=== PATIENT | male | born 1990 | race Two or more races ===

== ENCOUNTER 2025-03-29 10:21 | Emergency (ER) | payer OTHER ==
[~2025-03-29] VITALS: Ht 162.6 cm; Wt 66.1 kg
--- NOTE | 2025-03-29 10:36 | ECG ---
[facility] Test Date: 2025-03-29 Test Time: 10:31:51 Pat Name: YOLIS CANNON Department: [facility] ED Patient ID: [id number] Room: Gender: M Chief Guard: : 1990 Requested By: ENEDINA LAURENT Order Number: [id number] Reading MD: Goldy Amado Measurements Intervals [place] Rate: 94 P: -22 MS: 236 QRS: -27 QRSD: 149 T: 142 QT: 454 QTc: 568 Interpretive Statements Sinus rhythm Prolonged MS interval IVCD, consider atypical RBBB Inferior infarct, old Electronically Signed On 03-29-2025 11:02:32 PST by Goldy Amado Please click the below link to view image of tracing.
--- NOTE | 2025-03-29 11:10 | ED.PDOC ---
History of Present Illness HPI Comments 35 year old male presents to the ED with a chief complaint of cough onset 1 week. Patient states he has been experiencing cough as well as chest tightness for the past week. 1 week ago, when he began experiencing cough he experienced syncopal episode, woke up on the ground. Since then, he has been experiencing cough with chest discomfort, yesterday noticed burning sensation on chest. Denies fever, chills, headache, dizziness, hemoptysis, nausea, vomiting, diarrhea, numbness/tingling, blurred vision. No other symptoms or modifying factors present at this time. Chief Complaint: Shortness of Breath Time Seen by MD: 11:00 Reviewed Notes: Medications, Allergies Allergies: Coded Allergies: NO KNOWN ALLERGIES (Unverified , 03/29/25) Information Source: Patient, Relative (Mother) Mode of Arrival: Ambulatory Severity: Moderate Timing: Weeks Duration: Since onset Prehospital treatment: None Past Medical History PAST MEDICAL HISTORY: Denies Family History Family History: Reviewed,noncontributory to illness, No family hx of Cancer, No family hx of DM, No family hx of Heart felicita, No family hx of HTN, No family hx ofKidney felicita, No family hx of Liver felicita, No family hx of Lung felicita, No family hx of Stroke Social History Smoker: Non-Smoker Alcohol: Denies ETOH Use Drugs: Denies Drug Use Lives In: Home Constitutional: denies: chills, diaphoresis, fatigue, fever, malaise, sweats, weakness, others EENTM: denies: blurred vision, double vision, ear bleeding, ear discharge, ear drainage, ear pain, ear ringing, eye pain, eye redness, hearing loss, mouth pain, mouth swelling, nasal discharge, nose bleeding, nose congestion, nose pain, photophobia, tearing, throat pain, throat swelling, voice changes, others Respiratory: reports: cough; denies: hemoptysis, orthopnea, SOB at rest, shortness of breath, SOB with excertion, stridor, wheezing, others Cardiovascular: reports: chest pain; denies: dizzy spells, diaphoresis, Dyspnea on exertion, edema, irregular heart beat, left arm pain, lightheadedness, palpitations, PND, syncope, others Gastrointestinal: denies: abdomen distended, abdominal pain, blood streaked bowels, constipated, diarrhea, dysphagia, difficulty swallowing, hematemesis, melena, nausea, poor appetite, poor fluid intake, rectal bleeding, rectal pain, vomiting, others Genitourinary: denies: burning, dysuria, flank pain, frequency, hematuria, incontinence, penile discharge, penile sore, pain, testicle pain, testicle swelling, urgency, others Neurological: reports: others (syncope); denies: dizziness, fainting, headache, left sided numbness, left sided weakness, numbness, paresthesia, pre-existing deficit, right sided numbness, right sided weakness, seizure, speech problems, tingling, tremors, weakness Musculoskeletal: denies: back pain, gout, joint pain, joint swelling, muscle pain, muscle stiffness, neck pain, others Integumetry: denies: bruises, change in color, change in hair/nails, dryness, laceration, lesions, lumps, rash, wounds, others Allergic/Immunocompromised: denies: Difficulty Healing, Frequent Infections, Hives, Itching, others Hematologic/Lymphatic: denies: anemia, blood clots, easy bleeding, easy bruising, swollen glands, others Endocrine: denies: excessive hunger, excessive sweating, excessive thirst, excessive urination, flushing, intolerance to cold, intolerance to heat, unexplained weight gain, unexplained weight loss, others Psychiatric: denies: anxiety, bipolar disorder, depression, hopeless, panic disorder, schizophrenia, sleepless, suicidal, others All Other Systems: Reviewed and Negative Physical Exam General Appearance: No Apparent Distress, Normal HEENT: Normal ENT Inspection, Pharynx Normal, TMs Normal Neck: Full Range of Motion, Non-Tender, Normal, Normal Inspection Respiratory: Chest Non-Tender, Lungs Clear, No Accessory Muscle Use, No Respiratory Distress, Normal Breath Sounds Cardiovascular: No Edema, No JVD, No Murmur, No Gallop, Normal Peripheral Pulses, Regular Rate/Rhythm Breast Exam: Deferred Gastrointestinal: No Organomegaly, Non Tender, No Pulsatile Mass, Normal Bowel Sounds, Soft Genitalia: Deferred Pelvic: Deferred Rectal: Deferred Extremities: No calf tenderness, Normal capillary refill, Normal inspection, Normal range of motion, Non-tender, No pedal edema Musculoskeletal : Apperance: Normal Neurologic: Alert, chip mucker II-XII nml as Tested, No Motor Deficits, Normal Affect, Normal Mood, No Sensory Deficits Cerebellar Function: Normal Reflexes: Normal Skin: Dry, Normal Color, Warm Lymphatic: No Adenopathy Was a procedure done? Was a procedure done?: No EKG EKG : Pulse Rate (adult): 94 Cardiac Rhythm: NSR X-Ray, Labs, Meds, VS Vital Signs Date Time Temp Pulse Resp B/P (MAP) Pulse Ox O2 Delivery O2 Flow Rate FiO2 03/29/25 11:10 94 03/29/25 10:31 97 03/29/25 10:23 97.6 102 16 155/112 97 97.6 Lab Test 03/29/25 12:23 03/29/25 11:16 Range/Units Troponin I High Sensitivity 26 25 </=54 ng/L White Blood Count 9.4 4.4-10.8 10^3/uL Red Blood Count 5.65 4.5-5.90 10^6/uL Hemoglobin 18.0 H 13.5-17.5 g/dL Hematocrit 53.2 H 41.0-53.0 % Mean Corpuscular Volume 94.2 80.0-100.0 fL Mean Corpuscular Hemoglobin 31.9 28.0-32.0 pg Mean Corpuscular Hemoglobin Concent 33.9 32.0-36.0 g/dL Red Cell Distribution Width 14.4 H 11.8-14.3 % Platelet Count 191 140-450 10^3/uL Mean Platelet Volume 9.0 6.9-10.8 fL Neutrophils (%) (Auto) 72.3 37.0-80.0 % Lymphocytes (%) (Auto) 19.3 10.0-50.0 % Monocytes (%) (Auto) 7.0 0.0-12.0 % Eosinophils (%) (Auto) 0.3 0.0-7.0 % Basophils (%) (Auto) 1.1 0.0-2.0 % Neutrophils # (Auto) 6.8 1.6-8.6 10 ^3/uL Lymphocytes # (Auto) 1.8 0.4-5.4 10 ^3/uL Monocytes # (Auto) 0.7 0-1.3 10 ^3/uL Eosinophils # (Auto) 0 0-0.8 10 ^3/uL Basophils # (Auto) 0.1 0-0.2 10 ^3/uL Nucleated Red Blood Cells 0.2 % Sodium Level 144 136-145 mmol/L Potassium Level 4.5 3.5-5.1 mmol/L Chloride Level 108 H 98-107 mmol/L Carbon Dioxide Level 26 20-31 mmol/L Anion Gap 10 5-15 Blood Urea Nitrogen 14 9-23 mg/dL Creatinine 1.39 H 0.700-1.30 mg/dL Glomerular Filtration Rate Calc 69 >90 mL/min BUN/Creatinine Ratio 10.1 10.0-20.0 Serum Glucose 87 74-106 mg/dL Calcium Level 9.5 8.7-10.4 mg/dL Time of 1ST Reevaluation: 11:30 Reevaluation 1ST: Unchanged Patient Education/Counseling: Diagnosis, Treatment, Prognosis Family Education/Counseling: Diagnosis, Treatment, Prognosis SEPSIS Sepsis Screen Date sepsis recognized/suspect: Mar 29, 2025 Time Sepsis recognized/suspect: 1022 Recent Procedure: No On Antibiotic Therapy: No Respiratory Rate >20: No Heart Rate >90: Yes Temp<36 C (96.8 F) or >38.3 C: No SBP <90 or MAP <65 mmHG: No New Acute Mental Status Change: No Is the patient on CPAP, BIPAP,: No Physician Orders Electrocardigram (03/29/25 10:35) Urinalysis (03/29/25 11:03) Electrocardigram (03/29/25 11:03) Troponin-I Hs (03/29/25 14:03) Electrocardigram (03/29/25 12:03) Electrocardigram (03/29/25 14:03) Chest Portable (03/29/25 11:24) Hydralazine Injection (Apresoline Inject (03/29/25 14:30) Albuterol Medneb (Ventolin Medneb) (03/29/25 14:30) Ipratropium Medneb (Atrovent Medneb) (03/29/25 14:30) Vital Signs Date Time Temp Pulse Resp B/P (MAP) Pulse Ox O2 Delivery O2 Flow Rate FiO2 03/29/25 11:10 94 03/29/25 10:31 97 03/29/25 10:23 97.6 102 16 155/112 97 97.6 Laboratory Tests Test 03/29/25 11:16 White Blood Count 9.4 10^3/uL (4.4-10.8) Critical Care Note Critical Care Time?: No Stability Stability form required: No Heart Score Heart Score: Heart Score Response (Comments) Value History N/A 0 EKG N/A 0 Age N/A 0 Risk Factors N/A 0 Troponin N/A 0 Total 0 I personally scribed for ENEDINA LAURENT MD ([email or web address]) on 03/29/25 at 11:10. Electronically submitted by Baylee Arrieta ([email or web address]). ENEDINA LAURENT MD Mar 29, 2025 11:10
[2025-03-29 11:33] LABS: Hematocrit 53.2 % (41.0-53.0)
[2025-03-29 11:41] LABS: Potassium 4.5 mmol/L (3.5-5.1); Sodium 144 mmol/L (136-145)
[2025-03-29 11:42] LABS: Anion Gap 10 (5-15); Calcium 9.5 mg/dL (8.7-10.4); Carbon Dioxide 26 mmol/L (20-31)
[2025-03-29 11:47] LABS: BUN/Creatinine Ratio 10.1 (10.0-20.0); Blood Urea Nitrogen 14 mg/dL (9-23); Chloride 108 mmol/L (98-107); Glucose 87 mg/dL (74-106)
[2025-03-29 11:54] LABS: Hemoglobin 18.0 g/dL (13.5-17.5); Mean Corpuscular Hemoglobin 31.9 pg (28.0-32.0); Mean Corpuscular Volume 94.2 fL (80.0-100.0); Nucleated Red Blood Cells % 0.2 %
--- NOTE | 2025-03-29 11:56 | DVH ---
AP portable chest CLINICAL INDICATION: sob FINDINGS: Heart size is enlarged. There is evidence of prior cardiac surgery. There are no infiltrates or effusions. IMPRESSION: 1. . Cardiomegaly. No acute cardiopulmonary pathology
[2025-03-29] MEDS: ALBUTEROL SULF 2.5 MG/0.5ML(0.5%) NEB SOLN NEB ONE (14:43)
[2025-03-29] MEDS: IPRATROPIUM BROM 0.5 MG/2.5ML INH SOL NEB ONE (14:43)
[2025-03-29 15:19] VITALS: BP 160/119; PULSE 109; RESP 17; TEMP 98.7; O2SAT 97
[2025-03-29] MEDS: hydrALAZINE HCL 20 MG/ML VL IV ONE (15:33)
== END 2025-03-29 15:35 | disposition left against medical advice (07) ==
LOC: ER 10:21
DX: R05.9 Cough, unspecified (principal); R07.89 Other chest pain; Z79.899 Other long term (current) drug therapy
CPT/HCPCS: 36415; 71045; 80048; 84484; 85025; 93005; 94640

== ENCOUNTER 2025-05-01 11:15 | Emergency (ER) | payer MEDICAID, OTHER ==
[~2025-05-01] VITALS: Ht 160 cm; Wt 69.2 kg
[2025-05-01 11:35] VITALS: PULSE 118; RESP 17; O2SAT 95
--- NOTE | 2025-05-01 12:07 | ED.PDOC ---
SOB-HPI HPI Comments HPI: Talon 35 y.o male presents to the ED for a chief complaint of a productive cough that started one month ago. Patient has tried teas and OTC medications such as Robitussin, Tylenol, and Mucinex however denies any relief. Patient was seen at the hospital when symptoms presented, had x rays done and blood work, however si gned AMA. Today, he states cough has been ongoing but developed new puffiness to bilateral feet. He denies any chest pain, fever, chills, nausea, vomiting. Initial Vitals BP: 139/103 HR: 115 RR: 22 O2: 93-94% RA Temp: Past Medical History: Tetralogy of Fallot Past Surgical History: Tetralogy of Fallot repair at [facility] Social History:Denies Medications: None Allergies: None HPI: Poor Historian. REVIEW OF SYSTEMS: CONSTITUTIONAL: Denies acute: fever, diaphoresis, chills, HEAD: Denies acute: headache, photophobia Eyes: Denies acute: Double vision, vision loss, eye pain, eye discharge. EARS: Denies acute: tinnitus, hearing loss, ear discharge, ear pain, THROAT: Denies acute: sore throat, swelling, difficulty swallowing , pain with swallowing, change in voice. NECK: Denies acute: neck pain, neck swelling, stiff neck. HEART: Denies acute : chest pain, palpitations, LUNGS: Denies acute: wheezing, hemoptysis ABDOMEN: Denies acute: abdominal pain, Nausea, Vomiting, diarrhea, melena , hematemesis, hematochezia SKIN: Denies acute: rash, redness, lesions, itchiness. EXTREMITIES: Denies acute: calf pain, numbness, tingling, weakness, denies pain in extremity. Denies acute: Low back pain. Neuro: Denies acute: focal neurological deficit, motor or sensory focal neurological deficit, tremors, seizure like activity, confusion, dizziness, change in mental status, loss of bowel or bladder function, cauda equina like symptoms. : Denies acute: dysuria, hematuria, flank pain, increase in urinary frequency. PSYCH: Denies acute: hallucination, suicidal ideation, homicidal ideation. PHYSICAL EXAM: General: ---mod----acute distress, awake and alert. Head: normocephalic, atraumatic. No raccoon's eyes, no roach sign. Neck: supple, trachea is midline, no swelling. Throat: Normal phonation. Eyes:, no erythema, no purulent discharge, no proptosis, no icterus. Heart: regular tachycardic,, no significant murmur appreciated. Lungs:mild respiratory distress, Able to speak in full sentences. No wheezing, no rhonchi, no crackles. No stridors Clear to auscultation bilaterally. Abdomen: non tender to palpation, non distended, soft, no guarding, no rebound, + bowel sounds. Neuro: Awake, Alert, oriented to name, self, situation, follows commands GCS=15. Speech is normal. Skin: no petechia, no purpura, no cyanosis, non-pale, not jaundice. Lower extremities: --tace b/l - feet edema no deformity, no focal swelling, no calf TTP. Makes eye contact. moves all four extremities. Face: no apparent facial droop. ED COURSE: DISCLAIMER: This medical document was created using an electronic medical record system with voice recognition software and computerized dictation system. Although this document has been carefully reviewed, there might still be some phonetic and typographical errors. Occasional wrong-word or "sound-alike" substitutions may have occurred due to the inherent limitations of voice recognition software. These areas are purely typographical due to imperfections of the software programs and do not reflect any compromise in the patient's medical care. Please read the chart carefully and recognize, using context, where these substitutions have occurred. . MDM: [facility] is a capacity however the accepting physician there is Dr. Feng Mcfarland chief of Cardiothoracic surgery he is willing to care of the patient and recommends the patient to be admitted to congenital cardiology service. [facility] recommends that we keep checking with them every hour for capacity. I also discussed with the family the situation and all the different places we have tried. The family may leave against medical advice and drive himself directly to [place] with a packet of all the medical records from our ED encounter today. Mother will make her decision soon after she speaks with the . Amongst many other facilities we tried to reach out, we will also reach out to [facility] where patient had this surgeries. They refused to take the patient given his age. The care of this patient was transitioned to my colleague Dr. Callejas. Chief Complaint: Cough Time Seen by MD: 11:57 Reviewed notes: Allergies Information Source: Patient, Relative Mode of Arrival: Ambulatory Severity: Moderate Timing: Months Was a procedure done? Was a procedure done?: No Differential Dx Differential Diagnosis: Anxiety, Asthma, Bronchitis, CHF, COPD, Pneumonia, Respiratory Distress, URI, Other (DDx include ACS, unstable angina, anxiety, PE, pneumothroax, neoplasm, cardiac ischemia, COPD, asthma, CHF, pleural effusion, tobacco abuse, pneumonia, hypoxia, hypercapnia, anemia., infection/sepsis., pulmonary edema. Asthma, Cardiac tamponade, infection.) X-Ray, Labs, Meds, VS Vital Signs Date Time Temp Pulse Resp B/P (MAP) Pulse Ox O2 Delivery O2 Flow Rate FiO2 05/01/25 17:32 101 16 132/101 (111) 96 05/01/25 16:32 100 22 137/101 (113) 97 05/01/25 16:00 104 05/01/25 15:30 105 22 140/107 (118) 96 05/01/25 14:30 112 18 135/97 (110) 94 05/01/25 13:52 138/103 05/01/25 13:39 108 27 145/106 (119) 93 05/01/25 12:30 102 29 130/96 (107) 94 05/01/25 12:00 115 05/01/25 11:35 118 17 95 Room Air* 0 21 05/01/25 11:35 97.7 118 17 140/105 (117) 95 97.7 05/01/25 11:18 97.9 111 18 137/107 93 97.9 Lab Test 05/01/25 14:47 05/01/25 14:01 05/01/25 12:59 05/01/25 12:08 Range/Units Troponin I High Sensitivity 38 25 27 </=54 ng/L Lactic Acid Level 2.3 *H 2.8 *H 0.4-2.0 mmol/L White Blood Count 10.2 4.4-10.8 10^3/uL Red Blood Count 5.47 4.5-5.90 10^6/uL Hemoglobin 17.6 H 13.5-17.5 g/dL Hematocrit 52.3 41.0-53.0 % Mean Corpuscular Volume 95.6 80.0-100.0 fL Mean Corpuscular Hemoglobin 32.2 H 28.0-32.0 pg Mean Corpuscular Hemoglobin Concent 33.6 32.0-36.0 g/dL Red Cell Distribution Width 15.3 H 11.8-14.3 % Platelet Count 159 140-450 10^3/uL Mean Platelet Volume 8.7 6.9-10.8 fL Neutrophils (%) (Auto) 69.1 37.0-80.0 % Lymphocytes (%) (Auto) 22.5 10.0-50.0 % Monocytes (%) (Auto) 7.4 0.0-12.0 % Eosinophils (%) (Auto) 0.2 0.0-7.0 % Basophils (%) (Auto) 0.8 0.0-2.0 % Neutrophils # (Auto) 7.1 1.6-8.6 10 ^3/uL Lymphocytes # (Auto) 2.3 0.4-5.4 10 ^3/uL Monocytes # (Auto) 0.8 0-1.3 10 ^3/uL Eosinophils # (Auto) 0 0-0.8 10 ^3/uL Basophils # (Auto) 0.1 0-0.2 10 ^3/uL Nucleated Red Blood Cells 0.1 % Prothrombin Time 14.0 H 9.3-11.8 sec Prothrombin Time INR 1.36 H 0.9-1.15 Activated Partial Thromboplast Time 28.8 24.5-34.5 SEC D-Dimer, Quantitative 17.04 H 0.0-0.49 mg/L FEU Urine Color Light-yellow Yellow Urine Clarity Clear Clear Urine pH 5.5 5.0-9.0 Urine Specific [place] 1.025 1.001-1.035 Urine Protein 1+ H Negative Urine Ketones Negative Negative Urine Blood Negative Negative /uL Urine Nitrite Negative Negative Urine Bilirubin Negative Negative Urine Urobilinogen Normal Negative mg/dL Urine Leukocyte Esterase Negative Negative /uL Urine RBC 1 0 - 3 /hpf Urine Microscopic WBC < 1 0-3 /HPF Urine Squamous Epithelial Cells None seen <5 /hpf Urine Bacteria None seen None Seen /hpf Urine Mucus Few None Seen Urine Glucose Normal Normal mg/dL Sodium Level 139 136-145 mmol/L Potassium Level 4.2 3.5-5.1 mmol/L Chloride Level 108 H 98-107 mmol/L Carbon Dioxide Level 18 L 20-31 mmol/L Anion Gap 13 5-15 Blood Urea Nitrogen 15 9-23 mg/dL Creatinine 1.23 0.700-1.30 mg/dL Glomerular Filtration Rate Calc 80 >90 mL/min BUN/Creatinine Ratio 12.2 10.0-20.0 Serum Glucose 130 H 74-106 mg/dL Calcium Level 8.6 L 8.7-10.4 mg/dL Magnesium Level 2.5 1.6-2.6 mg/dL Total Bilirubin 2.8 H 0.2-1.0 mg/dL Aspartate Amino Transferase (AST) 35 13-40 U/L Alanine Aminotransferase (ALT) 36 7-40 U/L Alkaline Phosphatase 167 H 46-116 U/L B-Type Natriuretic Peptide 1949.45 0-100 pg/mL Total Protein 6.1 5.7-8.2 g/dL Albumin 4.0 3.2-4.8 g/dL Thyroid Stimulating Hormone (TSH) 3.53 0.55-4.78 uIU/mL Urine Opiates Screen Neg NEGATIVE Urine Fentanyl Screen Neg NEGATIVE Urine Barbiturates Screen Neg NEGATIVE Urine Phencyclidine Screen Neg NEGATIVE Urine Amphetamines Screen Neg NEGATIVE Urine Benzodiazepines Screen Neg NEGATIVE Urine Cocaine Screen Neg NEGATIVE Urine Cannabinoids Screen Neg NEGATIVE Current Medications Medications (Trade) Dose Ordered Sig/Thuan Route Start Time Stop Time Status Last Admin Furosemide (Lasix Injection) 20 mg ONCE ONCE IV 05/01/25 13:15 05/01/25 13:20 DC 05/01/25 13:52 Ceftriaxone Sodium 50 ml @ 100 mls/hr ONCE ONCE IV 05/01/25 13:15 05/01/25 13:44 DC 05/01/25 13:52 Guaifenesin/ Codeine Phosphate (Robitussin/ Codeine Liq) 10 ml ONCE ONCE PO 05/01/25 14:30 05/01/25 14:31 DC 05/01/25 15:09 Enoxaparin Sodium (Lovenox) 70 mg ONCE ONCE SC 05/01/25 14:45 05/01/25 14:46 DC 05/01/25 15:17 Time of 1ST Reevaluation: 12:01 Reevaluation 1ST: Unchanged Time of 2ND Reevaluation: 16:48 ([facility] is a capacity. Discussed the case with Dr. Rogers at [facility]. He reviewed the imaging studies. He recommends transfer the patient to a Cardiothoracic facility because it is most likely postsurgical findings and not a PE. He does not think that the patient will be a good candidate for thrombectomy. [facility] He requested to transfer to send me to speak with the Cardiothoracic surgeon. The transfer center said that they reach out to the Cardiothoracic surgeon who deferred to the interventional radiologist. I spoke with the interventional radiologist Dr. Kemp. I discussed the case in length with him and I have sent him a video of the CT scan to review. He said since the patient is stable to try to anticoagulate the patient and repeat the CTA angio maybe in few days but he does not think that this is necessarily acute.) Time of 3RD Reevaluation: 18:38 (I spoke with Michael and Cardiothoracic surgeon Dr. Wiggins. I discussed the case with him. He recommends higher level of care. He will not be able take care of this patient at [place]. He recommends another bigger facility.I later spoke with Dr. Guillen Cardiothoracic surgeon at [facility]. He said the same thing. He said the patient will benefit from being transferred to higher level of care and a bigger facility. They can not manage those patients at [facility] or at [facility]I reached out to [facility]: THEY SAID THEY DO NOT HAVE CARDIOTHORACIC SURGERY BUT ONLY THORACIC SURGERY.I SPOKE WITH DR. FENG MCFARLAND at [facility]. Chief of Cardiothoracic surgery. He accepted the patient to be transferred to [place] to be admitted to the congenital cardiology department and he will follow in consult. ) Patient Education/Counseling: Diagnosis, Treatment Family Education/Counseling: No Family Present Comments Patient was given Lasix and Lovenox and placed on supplemental oxygen for comfort. Multiple consultation with multiple physicians. It is still awaiting patient to be transferred to higher level of care. Patient remained stable here in the ED. The patient care was transitioned to my colleague Dr. Callejas. Still awaiting a definitive accepting center. Departure 1 Departure Time of Disposition: 13:07 Impression: Primary Impression: Cough Additional Impressions: Elevated d-dimer Acute respiratory distress Elevated brain natriuretic peptide (BNP) level Pulmonary artery thrombosis Disposition: 02 SHORT TERM HOSPITAL Admit to: Tele Condition: Guarded Discharged With: Self Critical Care Note Critical Care Time?: Yes (>90min-critical care time only) Critical care comment: Due to a high probability of clinically significant, life threatening deterioration, the patient required my highest level of preparedness to intervene emergently and I personally spent this critical care time directly and personally managing the patient. This critical care time included obtaining a history; examining the patient; pulse oximetry; ordering and review of studies; arranging urgent treatment with development of a management plan; evaluation of patient's response to treatment; frequent reassessment; and, discussions with other providers. This critical care time was performed to assess and manage the high probability of imminent, life-threatening deterioration that could result in multi-organ failure. It was exclusive of separately billable procedures and treating other patients and teaching time. Please see my other sections and the rest of the note for further information on patient assessment and treatment. Heart Score Heart Score: Heart Score Response (Comments) Value History N/A 0 EKG N/A 0 Age N/A 0 Risk Factors N/A 0 Troponin N/A 0 Total 0 I personally scribed for LORENZO BOWMAN DO ([email or web address]) on 05/01/25 at 12:07. Electronically submitted by Fabiana Downey ([facility]). LORENZO BOWMAN DO May 01, 2025 12:07
[2025-05-01 12:29] LABS: Hematocrit 52.3 % (41.0-53.0); Hemoglobin 17.6 g/dL (13.5-17.5); Mean Corpuscular Hemoglobin 32.2 pg (28.0-32.0); Mean Corpuscular Volume 95.6 fL (80.0-100.0); Nucleated Red Blood Cells % 0.1 %
--- NOTE | 2025-05-01 12:41 | DVH ---
EXAM DESCRIPTION: Chest 1 View CLINICAL HISTORY: COUGH, TACHY COMPARISON: XY CHEST PORTABLE on DOS: 03/29/25 FINDINGS and IMPRESSION: Lines, tubes, and support devices: None. Lungs / Pleura: No consolidation. No pleural effusion. No pneumothorax. Mediastinum: Redemonstrated enlarged cardiomediastinal silhouette. Osseous structures / Soft tissues: No acute findings.
[2025-05-01 12:42] LABS: Alanine Aminotransferase 36 U/L (7-40); Anion Gap 13 (5-15); BUN/Creatinine Ratio 12.2 (10.0-20.0); Blood Urea Nitrogen 15 mg/dL (9-23); Magnesium 2.5 mg/dL (1.6-2.6); Potassium 4.2 mmol/L (3.5-5.1); Sodium 139 mmol/L (136-145); Total Protein 6.1 g/dL (5.7-8.2)
[2025-05-01 12:43] LABS: Albumin 4.0 g/dL (3.2-4.8); Alkaline Phosphatase 167 U/L (46-116); Calcium 8.6 mg/dL (8.7-10.4); Carbon Dioxide 18 mmol/L (20-31); Chloride 108 mmol/L (98-107); Glucose 130 mg/dL (74-106)
[2025-05-01 12:46] LABS: Bilirubin, Total 2.8 mg/dL (0.2-1.0)
[2025-05-01 12:55] LABS: Lactic Acid w/Reflex 2.8 mmol/L (0.4-2.0)
[2025-05-01 13:24] LABS: INR 1.36 (0.9-1.15); Partial Thromboplastin Time 28.8 SEC (24.5-34.5); Prothrombin Time 14.0 sec (9.3-11.8)
[2025-05-01] MEDS: IOHEXOL 350 MG/ML 100ML IJ ONE (13:37)
[2025-05-01] MEDS: FUROSEMIDE 20 MG/2 ML VIAL IV ONE ×2 (13:52→20:17)
[2025-05-01 14:39] LABS: Urine Protein, UAD 1+ (Negative)
--- NOTE | 2025-05-01 14:48 | DVH ---
CLINICAL INFORMATION: Shortness of breath and tachycardia. TECHNIQUE: Axial CTA images of the chest were obtained after the uneventful administration of 100 mL of Omnipaque 350 IV contrast. Coronal and sagittal reformatted images and MIP images were obtained, reviewed, and stored. One or more of the following dose reduction techniques were used: Automated exposure control. Adjustment of mA and/or kV according to patient size. CTDIvol = 20.72 mGy DLP = 471.37 mGy-cm COMPARISON: XY CHEST PORTABLE on DOS: 05/01/25, XY CHEST PORTABLE on DOS: 03/29/25 FINDINGS: Pulmonary arteries: There is a large filling defect in the proximal main pulmonary artery and extending to involve portions of the pulmonary outflow tract of the right ventricle as well as anterior to the right ventricle, interposed between the right ventricle and sternum, abutting the sternum, measur ing up to 4.1 cm in AP dimension, 5.2 cm in transverse dimension, and 7.4 cm in craniocaudal dimension. The patient Has reported history of prior repair for tetralogy of Fallot. There are adjacent postsurgical changes in the main pulmonary artery. There is a stent in the right main pulmonary artery. No pulmonary embolism is seen in in the right or left main pulmonary arteries or lobar pulmonary artery branches bilaterally. Respiratory motion artifact limits evaluation for segmental or subsegmental pulmonary emboli. Aorta: No aneurysm. No significant calcification is seen. Cardiac: Moderate cardiomegaly. There are locules of gas in the pericardium adjacent to the right atrium and right ventricle. There is reflux of contrast into the IVC and hepatic veins suggesting right heart failure. Mediastinum/matheus: No mass or adenopathy. Lungs: There is a moderate right pleural effusion with overlying mild compressive atelectasis. Respiratory motion artifact limits evaluation. Chest wall: No mass or other abnormality. Upper abdomen: Partially visualized ascites. Hepatic steatosis. Bones: No acute fracture or suspicious intraosseous lesions. IMPRESSION: 1. Large filling defect in the proximal main pulmonary artery and involving portions of the right pulmonary outflow tract of the right ventricle and extending anterior to the right ventricle, abutting the sternum. Findings are consistent with thrombus adjacent to the postsurgical changes in the right main pulmonary artery. There is no other evidence for pulmonary embolism in the right or left main pulmonary arteries or in the lobar branches. Respiratory motion artifact limits evaluation for segmental or subsegmental pulmonary emboli. 2. Cardiomegaly and findings consistent with right heart failure. 3. Moderate right pleural effusion. 4. Partially visualized ascites in the upper abdomen and hepatic steatosis. Critical findings Critical Result: Thrombus in the proximal right main pulmonary artery as detailed above Findings discussed with Dr. Stokes, at 05/01/2025 04:45 PM IN HOUSE COUNSEL, and acknowledged receipt and understanding of the findings. ..
[2025-05-01 14:53] LABS: Amphetamine Screen, Urine Neg (NEGATIVE); Barbiturate Scree,Urine Neg (NEGATIVE); Benzodiazephine Screen, Urine Neg (NEGATIVE); Cannabinoid Screen, Urine Neg (NEGATIVE); Cocaine Screen, Urine Neg (NEGATIVE); Opiate Scree,Urine Neg (NEGATIVE); Phencyclidine Screen, Urine Neg (NEGATIVE)
[2025-05-01] MEDS: guaiFENesin-CODEINE Liq 5 ML UD PO ONE (15:09)
[2025-05-01] MEDS: ENOXAPARIN SOD 100 MG/1 ML SYRINGE SC ONE (15:17)
[2025-05-01 19:35] VITALS: PULSE 101; RESP 26; O2SAT 96
[2025-05-02 19:20] VITALS: PULSE 101
[2025-05-02 19:32] VITALS: BP 129/99; PULSE 99; RESP 19; TEMP 97.7; O2SAT 96
--- NOTE | 2025-05-02 19:32 | CONS ---
Pharmacy Clinical Information: H/H=17.6/52.3, LHM=073 PT=14, INR=1.36, PTT=28.8 WT=69.2 KG BOLUS 5500 UNITS THEN START RATE = 1200 UNITS/HR NEXT PTT @ 0200 CHRIS ROCK May 02, 2025 19:32
[2025-05-02] MEDS: HEPARIN SODIUM (PORCINE) 5000 UNITS/ML 1ML VIAL IV ONE ×2 (19:35→20:01)
[2025-05-02 19:48] LABS: INR 1.34 (0.9-1.15); Partial Thromboplastin Time 29.8 SEC (24.5-34.5); Prothrombin Time 13.8 sec (9.3-11.8)
[2025-05-02] MEDS: HEPARIN DRIP/D5W 100UNITS/ML 250 ML IV SCH (20:02)
--- NOTE | 2025-05-02 20:11 | ED.PDOC ---
Departure 1 Departure Time of Disposition: 20:09 (Patient with a large thrombus. Patient is critically ill. After an extensive search we finally found placement for patient at [facility] for emergent CT surgery evaluation. Patient accepted by Dr. Allan. Started the patient on a heparin drip. And we will give patient medicine for pain control.) Impression: Primary Impression: Pulmonary artery thrombosis Additional Impressions: Cough Elevated d-dimer Elevated brain natriuretic peptide (BNP) level Acute respiratory distress Disposition: 02 SHORT TERM HOSPITAL Admit to: ICU Condition: Critical Discharged With: Self Critical Care Note Critical Care Time?: Yes Critical care comment: Pulmonary thrombus and a tetralogy of Fallot patient Authorized and Performed by: Enedina Soto MD Total critical care time: Approximately 129 minutes Due to a high probability of clinically significant, life threatening deterioration, the patient required my highest level of preparedness to intervene emergently and I personally spent this critical care time directly and personally managing the patient. This critical care time included obtaining a history; examining the patient; pulse oximetry; ordering and review of studies; arranging urgent treatment with development of a management plan; evaluation of patient's response to treatment; frequent reassessment; and, discussions with other providers. This critical care time was performed to assess and manage the high probability of imminent, life-threatening deterioration that could result in multi-organ failure. It was exclusive of separately billable procedures and treating other patients and teaching time. Please see my other sections and the rest of the note for further information on patient assessment and treatment. ENEDINA SOTO MD May 02, 2025 20:11
[2025-05-02 20:12] LABS: Hematocrit 50.2 % (41.0-53.0); Hemoglobin 16.6 g/dL (13.5-17.5); Mean Corpuscular Hemoglobin 31.9 pg (28.0-32.0); Mean Corpuscular Volume 96.1 fL (80.0-100.0); Nucleated Red Blood Cells % 0.2 %
[2025-05-02] MEDS: ONDANSETRON HCL 4 MG/2 ML VIAL IV ONE (20:15)
[2025-05-02] MEDS: MORPHINE SULFATE 4 MG/ML SYR/VIAL IV ONE (20:15)
[2025-05-02 20:22] LABS: Chloride 104 mmol/L (98-107); Potassium 3.8 mmol/L (3.5-5.1); Sodium 142 mmol/L (136-145)
[2025-05-02 20:23] LABS: Anion Gap 15 (5-15); Carbon Dioxide 23 mmol/L (20-31)
[2025-05-02 20:28] LABS: BUN/Creatinine Ratio 8.6 (10.0-20.0); Blood Urea Nitrogen 14 mg/dL (9-23)
[2025-05-02 20:34] LABS: Calcium 8.5 mg/dL (8.7-10.4); Glucose 115 mg/dL (74-106)
== END 2025-05-02 20:45 | disposition left against medical advice (07) ==
LOC: ER 11:15
DX: R79.89 Other specified abnormal findings of blood chemistry (principal); I26.99 Other pulmonary embolism without acute cor pulmonale; R06.03 Acute respiratory distress; R05.9 Cough, unspecified
CPT/HCPCS: 36415; 71045; 71275; 80048; 80053; 80307; 81001; 83605; 83735; 83880; 84443; 84484; 85025; 85379; 85610; 85730; 96365; 96372; 96375; 96376; 99291; 99292; J0696; J1644; J1650; J1938; Q9967